=== PATIENT | male | born 1980 ===

== ENCOUNTER 2017-11-27 11:59 | Emergency (ER) | payer OTHER ==
[2017-11-27 12:15] VITALS: BP 140/84; PULSE 97; RESP 20; TEMP 97.9; O2SAT 100
[2017-11-27] MEDS ORDERED: Lidocaine 5% Patch TD STA (12:51)
[2017-11-27] MEDS ORDERED: Lidocaine 5% Patch TD ONE (13:01)
--- NOTE | 2017-11-27 14:13 | C.PDOC ---
History Of Present Illness 37 y/o male presents to the ER for sciatica like pain which has been present for the past 2 weeks. Patient states that he has trouble sitting and standing up and he cannot walk. Patient denies having fever, chills, and other complaints at this time. Time Seen by Provider: 11/27/17 12:31 Chief Complaint (Nursing): Lower Extremity Problem/Injury History Per: Patient History/Exam Limitations: no limitations Onset/Duration Of Symptoms: Days Current Symptoms Are (Timing): Still Present Severity: Moderate Past Medical History Reviewed: Historical Data, Nursing Documentation, Vital Signs Vital Signs: Last Vital Signs Temp 97.9 F 11/27/17 12:13 Pulse 97 H 11/27/17 12:13 Resp 20 11/27/17 12:13 BP 140/84 11/27/17 12:13 Pulse Ox 100 11/27/17 15:20 - Medical History PMH: HIV Surgical History: No Surg Hx Family History: States: No Known Family Hx - Social History Hx Alcohol Use: Yes Hx Substance Use: No - Immunization History Hx Tetanus Toxoid Vaccination: Yes Hx Influenza Vaccination: Yes Hx Pneumococcal Vaccination: Yes Review Of Systems Except As Marked, All Systems Reviewed And Found Negative. Constitutional: Negative for: Fever, Chills Musculoskeletal: Positive for: Back Pain Physical Exam - Physical Exam Appears: Non-toxic, No Acute Distress Skin: Normal Color, Warm, Dry Head: Atraumatic, Normacephalic Eye(s): bilateral: Normal Inspection Nose: Normal Oral Mucosa: Moist Neck: Supple Chest: Symmetrical Cardiovascular: Rhythm Regular Respiratory: Normal Breath Sounds, No Rales, No Rhonchi, No Wheezing Extremity: Normal ROM, Tenderness (tenderness to left buttock), No Swelling Neurological/Psych: Oriented x3, Normal Speech ED Course And Treatment O2 Sat by Pulse Oximetry: 100 (RA) Pulse Ox Interpretation: Normal Medical Decision Making Medical Decision Making: Plan: --Flexeril PO --Ultram PO --Motrin PO --Lidoderm Patch Disposition Counseled Patient/Family Regarding: Diagnosis, Need For Followup, Rx Given - Disposition Referrals: [facility] at [facility] [Outside] Disposition: HOME/ ROUTINE Disposition Time: 15:12 Condition: STABLE Prescriptions: Cyclobenzaprine [Cyclobenzaprine HCl] 10 mg PO TID #15 tab Ibuprofen [Motrin] 600 mg PO TID #15 tab Prednisone [Deltasone] 60 mg PO DAILY #9 tablet traMADol/Acetaminophen [Ultracet 37.5/325 mg] 1 tab PO HS PRN #12 tab PRN Reason: pain Forms: [facility], [facility] ([place]), Work Excuse - POA Present On Arrival: None - Clinical Impression Clinical Impression: Sciatica - Scribe Statement The provider has reviewed the documentation as recorded by the Laurny Horvath Provider Attestation: All medical record entries made by the Lauryn were at my direction and personally dictated by me. I have reviewed the chart and agree that the record accurately reflects my personal performance of the history, physical exam, medical decision making, and the department course for this patient. I have also personally directed, reviewed, and agree with the discharge instructions and disposition.
== END 2017-11-27 15:35 | disposition home or self-care (01) ==
LOC: C.ER 11:59
DX: M54.30 Sciatica, unspecified side (principal)

== ENCOUNTER 2017-12-03 19:41 | Emergency (ER) | payer OTHER ==
[2017-12-03 19:52] VITALS: BP 155/84; PULSE 100; TEMP 98; O2SAT 99
--- NOTE | 2017-12-03 20:05 | C.PDOC ---
History Of Present Illness 37 year old male presents to the ED complaining of left lower back pain radiating to his left buttock and down his left leg for 2 weeks. Patient reports he was seen in the ED last week for the same symptoms and was prescribed pain medications with mild relief. He notes he has trouble walking and sleeping due to the pain. Patient denies any trauma/injuries, fever/chills, incontinence, numbness, or tingling. Time Seen by Provider: 12/03/17 19:56 Chief Complaint (Nursing): Back Pain History Per: Patient History/Exam Limitations: no limitations Onset/Duration Of Symptoms: Days Current Symptoms Are (Timing): Still Present Quality Of Discomfort: "Pain" Severity: Severe Previous Symptoms: Back Pain Exacerbating Factor(s): Movement Past Medical History Reviewed: Historical Data, Nursing Documentation, Vital Signs Vital Signs: Last Vital Signs Temp 98.0 F 12/03/17 19:50 Pulse 100 H 12/03/17 19:50 Resp 20 12/03/17 21:30 BP 155/84 H 12/03/17 19:50 Pulse Ox 99 12/03/17 21:21 - Medical History PMH: HIV Surgical History: No Surg Hx Family History: States: No Known Family Hx - Social History Hx Alcohol Use: Yes Hx Substance Use: No - Immunization History Hx Tetanus Toxoid Vaccination: Yes Hx Influenza Vaccination: Yes Hx Pneumococcal Vaccination: Yes Review Of Systems Except As Marked, All Systems Reviewed And Found Negative. Constitutional: Negative for: Fever, Chills Genitourinary: Negative for: Incontinence Musculoskeletal: Positive for: Back Pain (Left lower back pain radiating to left buttock down left leg) Neurological: Negative for: Numbness Physical Exam - Physical Exam Appears: Non-toxic, In Acute Distress Skin: Normal Color, Warm, Dry Head: Atraumatic, Normacephalic Eye(s): bilateral: Normal Inspection Oral Mucosa: Moist Neck: Supple Back: Decreased ROM, Muscle Spasm (Lateral left sided), Paraspinal Tenderness, Other (Postured and tilted to the right ) Extremity: No Normal ROM (Limited ROM due to pain ) Neurological/Psych: Oriented x3, Normal Speech ED Course And Treatment O2 Sat by Pulse Oximetry: 99 (RA) Pulse Ox Interpretation: Normal Medical Decision Making Medical Decision Making: Impression: sciatica Orders: LS Spine XRay Decadron Neurontin Toradol Valium Lidoderm patch On re-evaluation patient feels better and is stable to be d/c home. Patient is ambulatory in ED without neuro deficit. Patient was instructed to follow up in the clinic within 1-2 days. Disposition - Disposition Referrals: [facility] at [facility] [Outside] Disposition: HOME/ ROUTINE Disposition Time: 21:12 Condition: IMPROVED Additional Instructions: Follow up with PMD within 2-3 days. Return to ED if feel worse. 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 - Scribe Statement The provider has reviewed the documentation as recorded by the Scribliana Carr All medical record entries made by the Lauryn were at my direction and personally dictated by me. I have reviewed the chart and agree that the record accurately reflects my personal performance of the history, physical exam, medical decision making, and the department course for this patient. I have also personally directed, reviewed, and agree with the discharge instructions and disposition.
[2017-12-03] MEDS ORDERED: Dexamethasone 4 mg/1 ml IVP STA (20:08)
[2017-12-03] MEDS ORDERED: Lidocaine 5% Patch TD STA (20:08)
[2017-12-03] MEDS ORDERED: Dexamethasone 4 mg/1 ml ONE (20:21)
[2017-12-03] MEDS ORDERED: Lidocaine 5% Patch TD ONE (20:21)
[2017-12-03 21:31] VITALS: RESP 20
--- NOTE | 2017-12-04 09:36 | RAD ---
PROCEDURE: Radiographs of the Lumbar Spine. HISTORY: left sciatica COMPARISON: No prior. FINDINGS: BONES: Slight leftward lumbar convexity and straightening of the normal lumbar lordosis. No listhesis. No fracture. DISC SPACES: Unremarkable. OTHER FINDINGS: Stool retention. IMPRESSION: No fracture. Other findings -as above.
== END 2017-12-03 21:30 | disposition home or self-care (01) ==
LOC: C.ER 19:41
DX: M54.30 Sciatica, unspecified side (principal)
CPT/HCPCS: 72100; 96372; 96374; 99283; J1100; J1885